=== PATIENT | male | born 1985 | race Hispanic/Latino ===

== ENCOUNTER 2017-12-16 08:21 | Day surgery (SDC) | payer BC ==
[2017-12-16] MEDS ORDERED: Ringers Lactate 1,000 ML IV ONE (08:25)
[2017-12-16] MEDS ORDERED: PROPOFOL 200 MG/20 ML VIAL IV ONE (09:23)
[2017-12-16] MEDS ORDERED: MIDAZOLAM HCL 2 MG/2 ML INJ ONE ×2 (09:24→11:46)
[2017-12-16] MEDS ORDERED: LIDOCAINE 2% MPF 5 ML VIAL ONE (09:24)
[2017-12-16] MEDS ORDERED: FENTANYL CITR 100 MCG/2 ML ONE ×2 (09:25→10:37)
[2017-12-16] MEDS ORDERED: ONDANSETRON 4 MG/2 ML VIAL ONE (09:25)
[2017-12-16] MEDS ORDERED: ROCURONIUM 50 MG/5 ML VIAL IV ONE (09:25)
[2017-12-16] MEDS ORDERED: BUPIVACA 0.25%/EPI 0.0005% MDV 50 ML VIAL ONE (09:31)
[2017-12-16] MEDS ORDERED: DEXAMETHASONE 10 MG/ML VIAL ONE (10:14)
[2017-12-16] MEDS ORDERED: GLYCOPYRROLATE 0.2 MG/ML SYR ONE ×2 (10:15→10:16)
[2017-12-16] MEDS ORDERED: NEOSTIGMINE 1 MG/ML -5 ML SYRINGE ONE (10:16)
--- NOTE | 2017-12-16 11:27 | P.OP ---
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 Details of Operation: The patient was brought to the operating room and placed under general anesthesia via endotracheal tube. The head of bed was turned 90 degrees. A Shoulder roll was placed and the neck extended. A head drape was applied. The McIvor mouth gag was placed and suspended from the Iglesias stand. The oxygen concentrate was confirmed with the sock lining examiner and was less than forty percent. Weight-based dexamethasone was administered by the sock lining examiner. The soft palate was palpated and there was no submucous cleft. A red rubber catheter was placed in the nose and secured to retract the soft palate. The tonsils were noted to be very large and cryptic and chonically inflammed. The left tonsil was grasped with a straight Allis clamp. The bovie electocautery was used to incision the mucosa over the anterior pillar and identify the tonsillar capsule. The tonsil was dissected using cautery and blunt dissection until free from soft tissue attachments. A tonsil ball was placed to aid hemostasis. The right tonsil was removed in a similar manner. Bleeding in the inferior fossa bilaterally required ligation with 0 Vicryl endoloop. The laryngeal mirror was used to visualize the nasopharynx. The adenoid size was small. The adenoids were removed using suction cautery. Hemostasis was achieved using packing and cautery as needed. Blood loss was minimal. All packing was removed. The tonsillar fossae were injected with 0.25% Marcaine with epinephrine. A total of 1.5 mL was used. A Salum sump orogastric tube was used to decompress the stomach. The red rubber catheter was removed and used to suction the nasopharynx and nasal cavity. The mouth gag was removed; there was no evidence of injury to the lips, teeth or tongue. The mandible was mobile. The patient's large tongue, excess weight and redundant soft palate indicate his should continue to use his CPAP machine with humidification daily. Disposition: The patient was then awakened from anesthesia and taken to the recovery room in stable condition.
[2017-12-16] MEDS: MEPERIDINE HCL 50 MG/ML AMP ONE ×2 (11:48→11:57)
[2017-12-16] MEDS ORDERED: HYDROCOD 2.5mg-ACETAMIN 108mg/5mL Soln ONE (12:49)
== END 2017-12-16 13:50 | disposition home or self-care (01) ==
LOC: OR 08:21
PROVIDERS: ATTEND Otolaryngology
PROC: 0CTPXZZ Resection of Tonsils, External Approach (ICD-10-PCS; principal; 2017-12-16 10:15)
DX: J03.91 Acute recurrent tonsillitis, unspecified (principal); J35.01 Chronic tonsillitis; D10.39 Benign neoplasm of other parts of mouth; G47.33 Obstructive sleep apnea (adult) (pediatric); Z83.3 Family history of diabetes mellitus; Z82.49 Family history of ischemic heart disease and other diseases of the circulatory system; Z82.3 Family history of stroke
CPT/HCPCS: 88305; J1100; J2175; J2250; J2405; J2710; J3010

== ENCOUNTER 2021-01-17 19:15 | Emergency (ER) | payer BC ==
--- OUTSIDE RECORDS SUMMARY | 2021-01-17 19:18 | XMS REPORT | Continuity of Care Document ---
:1985 Author Organization [facility] t Address [address] [place] [address] Care Team Providers Name Role Phone Camden Fox MD Attending Clinician Problems This patient has no known problems. Allergies, Adverse Reactions, Alerts This patient has no known allergies or adverse reactions. Medications This patient has no known medications. Procedures This patient has no known procedures. Encounters Start End Encounter Admission Attending Care Care Encounter Source Date/Time Date/Time Type Type Clinicians Facility Department ID 2020-04-28 2020-04-28 Emergency Ruddy [facility] [id number] 15:26:00 19:18:00 Camden Cunha [id number] [place] [id number] [place] [id number] Results This patient has no known results.
[2021-01-17 20:48] LABS: Absolute Lymphocytes (CBC) 2.8 K/uL (0.7-4.9); Basophils % 1.1 % (0-1.3); Lymphocytes % 30.7 % (15.3-44.8); MPV 9.8 fL (7.6-11.3); RBC Red Blood Cell Count 5.05 M/uL (4.33-5.43)
[2021-01-17 21:02] LABS: ALT/SGPT 94 U/L (12-78); Albumin 3.8 g/dL (3.4-5.0); Alkaline Phosphatase 204 U/L (45-117); BUN Blood Urea Nitrogen 20 mg/dL (7-18); Bicarbonate 25 mmol/L (21-32); Bilirubin Direct < 0.1 mg/dL (0-0.2); Bilirubin Total 0.5 mg/dL (0.2-1.0); Glucose Level 382 mg/dL (74-106); Lipase 198 U/L (73-393); Protein, Total 7.6 g/dL (6.4-8.2); Sodium Level 134 mmol/L (136-145)
[2021-01-17 21:05] LABS: Potassium 3.5 mmol/L (3.5-5.1)
[2021-01-17 21:06] LABS: AST/SGOT 33 U/L (15-37)
[2021-01-17] MEDS ORDERED: INSULIN -REGULAR HUMAN 50 UNIT/0.5 ML ML ONE (21:46)
[2021-01-17] MEDS ORDERED: NA CHLORIDE 0.9% 2,000 ML ONE (21:46)
[2021-01-17 22:46] LABS: Urine Blood Negative (Negative); Urine Glucose 2+ (Negative); Urine Protein Trace (Negative); Urine pH 5.5 (5.0-7.0)
[2021-01-17 23:15] LABS: Urine Bacteria <20 /HPF (NONE SEEN); Urine RBC <5 /HPF (NONE SEEN)
--- NOTE | 2021-01-17 23:48 | ER ---
Nurse's Notes [facility] Name: Wade Hutchinson Age: 35 yrs Sex: Male : 1985 Arrival Date: 01/17/2021 Time: 19:21 Bed 5 Private MD: Diagnosis: Diabetes mellitus due to underlying condition with hyperglycemia Presentation: 01/17 20:12 Chief complaint: Patient states: has had increased thirst and increased urination X 8 iw days, checked his BS and it was 586, no hx of diabetes. Coronavirus screen: At this time, the client does not indicate any symptoms associated with coronavirus-19. Ebola Screen: Patient negative for fever greater than or equal to 101.5 degrees Fahrenheit, and additional compatible Ebola Virus Disease symptoms Patient denies exposure to infectious person. Patient denies travel to an Ebola-affected area in the 21 days before illness onset. No symptoms or risks identified at this time. Initial Sepsis Screen: Does the patient meet any 2 criteria? No. Patient's initial sepsis screen is negative. Does the patient have a suspected source of infection? No. Patient's initial sepsis screen is negative. Risk Assessment: Do you want to hurt yourself or someone else? Patient reports no desire to harm self or others. Onset of symptoms was January 09, 2021. 20:12 Method Of Arrival: Ambulatory iw 20:12 Acuity: PORTIA 3 iw Historical: - Allergies: 20:14 No Known Allergies; iw - Home Meds: 20:14 None [Active]; iw - PMHx: 20:14 Sleep Apnea; iw - PSHx: 20:14 Tonsillectomy; iw - Immunization history:: Adult Immunizations not up to date. - Social history:: Smoking status: Patient denies any tobacco usage or history of. Screenin:29 Abuse screen: Denies threats or abuse. Nutritional screening: No deficits noted. ea Tuberculosis screening: No symptoms or risk factors identified. Fall Risk None identified. Assessment: 20:28 General: Appears in no apparent distress. Behavior is calm, cooperative, appropriate ea for age. Pain: Denies pain. Neuro: Level of Consciousness is awake, alert, obeys commands, Oriented to person, place, time. Respiratory: Airway is patent Respiratory effort is even, unlabored, Respiratory pattern is regular, symmetrical. Derm: Skin is pink, warm \T\ dry. Vital Signs: 20:12 Pulse 92; Resp 18 S; Temp 97.8; Pulse Ox 98% on R/A; Weight 106.14 kg; Height 5 ft. 4 iw in. (162.56 cm); Pain 0/10; 21:41 BP 134 / 78; Pulse 95; Resp 18; Pulse Ox 95% ; ea 22:19 BP 148 / 93; Pulse 96; Resp 18; Pulse Ox 96% ; ea 23:50 BP 130 / 85; Pulse 90; Resp 18; Temp 98; Pulse Ox 98% ; ea 20:12 Body Mass Index 40.17 (106.14 kg, 162.56 cm) iw ED Course: 19:21 Patient arrived in ED. am4 20:03 Vineet Choudhary PA is PHCP. cp 20:03 Yuan Rasheed MD is Attending Physician. cp 20:13 Triage completed. iw 20:14 Arm band placed on. iw 20:28 Giovana Thompson RN is Primary Nurse. ea 20:29 Patient has correct armband on for positive identification. Bed in low position. Call ea light in reach. Side rails up X 1. 20:35 Inserted saline lock: 20 gauge in right antecubital area, using aseptic technique. oe Blood collected. 22:09 US Abdomen Limited: liver/galbladder In Process Unspecified. EDMS 23:58 No provider procedures requiring assistance completed. IV discontinued, intact, ea bleeding controlled, No redness/swelling at site. Pressure dressing applied. Administered Medications: 21:21 CANCELLED (Inappropriate at this time): morphine 2 mg IVP once; (PAIN>8) RASS on ADMN: ea Combtv4, Very Agttd3, Agttd2, Rstlss1, AlertClm0, Drwsy-1, LtSdtn-2, ModSdtn-3, DpSdtn-4, UnArsble-5 x2 21:21 CANCELLED (Inappropriate at this time): Zofran (Ondansetron) 4 mg IVP once; over 2 ea minutes 21:32 Drug: NovoLIN R (insulin regular human) 7 units {Co-Signature: lp1 (Elvia Nazario RN).} ea Route: Sub-Q; Site: abdomen; 23:57 Follow up: Response: No adverse reaction ea 21:32 Drug: NS 0.9% 1000 ml Route: IV; Rate: 1 bolus; Site: right antecubital; ea 23:57 Follow up: Response: No adverse reaction; IV Status: Completed infusion; IV Intake: ea 1000ml 21:33 Drug: NS 0.9% 1000 ml Route: IV; Rate: 1 bolus; Site: right antecubital; ea Point of Care Testing: Blood Glucose: 20:14 Blood Glucose: 392 mg/dL; iw Ranges: Intake: 23:57 IV: 1000ml; Total: 1000ml. ea Outcome: 23:48 Discharge ordered by MD. cp 23:59 Discharged to home ambulatory, with family. ea 23:59 Condition: stable 23:59 Discharge instructions given to patient, Instructed on discharge instructions, follow up and referral plans. medication usage. 01/18 00:00 Patient left the ED. ea Signatures: Dispatcher [employer] EDMS Kym Ayala, RN RN Vineet Morse PA PA cp Espinosa, [place] oe Antunez, Elena RN RN Santa Weiss am Elvia Nazario RN lp1
--- NOTE | 2021-01-17 23:48 | EDPHYS ---
Physician Documentation [facility] Name: Wade Hutchinson Age: 35 yrs Sex: Male : 1985 Arrival Date: 01/17/2021 Time: 19:21 Bed 5 Private MD: ED Physician Yuan Rasheed HPI: 01/17 20:20 This 35 yrs old Male presents to ER via Ambulatory with complaints of High cp Blood Sugar. 20:20 The patient or guardian reports hyperglycemia, polydipsia, polyuria, weight loss, that cp was potentially precipitated by no particular event. Onset: The symptoms/episode began/occurred 8 day(s) ago. Associated signs and symptoms: Pertinent negatives: None. Current symptoms: In the emergency department the patient's symptoms are unchanged from the initial presentation, despite home interventions. Patient reports checking blood glucose level today and measuring 586. Patient denies being diagnosed with diabetes in the past. Historical: - Allergies: 20:14 No Known Allergies; iw - Home Meds: 20:14 None [Active]; iw - PMHx: 20:14 Sleep Apnea; iw - PSHx: 20:14 Tonsillectomy; iw - Immunization history:: Adult Immunizations not up to date. - Social history:: Smoking status: Patient denies any tobacco usage or history of. ROS: 20:25 Constitutional: Negative for body aches, chills, fever, poor PO intake. cp 20:25 Eyes: Negative for injury, pain, redness, and discharge. cp 20:25 ENT: Negative for ear pain, sore throat, difficulty swallowing, difficulty handling secretions. 20:25 Cardiovascular: Negative for chest pain, edema, palpitations. 20:25 Respiratory: Negative for cough, shortness of breath, wheezing. 20:25 Abdomen/GI: Negative for abdominal pain, nausea, vomiting, and diarrhea. 20:25 : Negative for burning with urination. 20:25 Neuro: Negative for altered mental status, headache, weakness. 20:25 Endocrine: Positive for polydipsia, polyuria, weight loss. 20:25 All other systems are negative. Exam: 20:30 Constitutional: The patient appears in no acute distress, alert, awake, cp non-diaphoretic, non-toxic, well developed, well nourished, overweight 20:30 Head/Face: Normocephalic, atraumatic. cp 20:30 Eyes: Periorbital structures: appear normal, Conjunctiva: normal, no exudate, no injection, Sclera: no appreciated abnormality, Lids and lashes: appear normal, bilaterally. 20:30 ENT: External ear(s): are unremarkable, Nose: is normal, Mouth: Lips: moist, Oral mucosa: moist, Posterior pharynx: Airway: no evidence of obstruction, patent. 20:30 Chest/axilla: Inspection: normal, Palpation: is normal, no crepitus, no tenderness. 20:30 Cardiovascular: Rate: normal, Rhythm: regular. 20:30 Respiratory: the patient does not display signs of respiratory distress, Respirations: normal, no use of accessory muscles, no retractions, labored breathing, is not present, Breath sounds: are clear throughout, no decreased breath sounds. 20:30 Abdomen/GI: Inspection: abdomen appears normal, Palpation: abdomen is soft and non-tender, in all quadrants. 20:30 Neuro: Orientation: to person, place \T\ time. Mentation: is normal, Cerebellar function: is grossly normal, Motor: moves all fours, strength is normal, Sensation: is normal. Vital Signs: 20:12 Pulse 92; Resp 18 S; Temp 97.8; Pulse Ox 98% on R/A; Weight 106.14 kg; Height 5 ft. 4 iw in. (162.56 cm); Pain 0/10; 21:41 BP 134 / 78; Pulse 95; Resp 18; Pulse Ox 95% ; ea 22:19 BP 148 / 93; Pulse 96; Resp 18; Pulse Ox 96% ; ea 23:50 BP 130 / 85; Pulse 90; Resp 18; Temp 98; Pulse Ox 98% ; ea 20:12 Body Mass Index 40.17 (106.14 kg, 162.56 cm) iw MDM: 20:14 Patient medically screened. cp 21:00 Differential diagnosis: diabetes insipidus, DKA, hyperglycemia, hyperthyroidism, new cp onset diabetes. 23:45 Data reviewed: vital signs, nurses notes, lab test result(s), radiologic studies, cp ultrasound, and as a result, I will discharge patient. 23:45 Counseling: I had a detailed discussion with the patient and/or guardian regarding: the cp historical points, exam findings, and any diagnostic results supporting the discharge/admit diagnosis, lab results, radiology results, the need for outpatient follow up, for definitive care, a family practitioner, to return to the emergency department if symptoms worsen or persist or if there are any questions or concerns that arise at home. Response to treatment: the patient's symptoms have markedly improved after treatment, and as a result, I will discharge patient. 01/17 20:12 Order name: Basic Metabolic Panel 01/17 20:12 Order name: CBC with Diff 01/17 20:12 Order name: Hepatic Function; Complete Time: 21:07 01/17 22:31 Interpretation: Normal except: ALT 94; ALK 204; GLOB 3.8; A/G 1.0. cp 01/17 20:12 Order name: Lipase; Complete Time: 21:07 01/17 20:12 Order name: Ketone, Serum; Complete Time: 21:07 01/17 20:12 Order name: Urine Microscopic Only; Complete Time: 23:30 01/17 20:13 Order name: Basic Metabolic Panel; Complete Time: 21:07 EDKS 01/17 22:31 Interpretation: Normal except: NA 134; GLUC 382; BUN 20; GFR 81; CA 8.3. cp 01/17 20:13 Order name: CBC with Automated Diff; Complete Time: 21:07 EDMS 01/17 20:24 Order name: Glucose, Ancillary Testing EDKS 01/17 21:11 Order name: US Abdomen Limited: liver/galbladder 01/17 22:45 Order name: Urine Dipstick-Ancillary; Complete Time: 23:30 EDMS 01/17 23:01 Order name: Glucose, Ancillary Testing; Complete Time: 23:30 EDKS 01/17 20:12 Order name: IV Saline Lock; Complete Time: 20:45 01/17 20:12 Order name: Labs collected and sent; Complete Time: 20:45 cp 01/17 21:11 Order name: NPO; Complete Time: 21:37 01/17 22:32 Order name: Accucheck Blood Glucose; Complete Time: 23:08 cp Administered Medications: 21:21 CANCELLED (Inappropriate at this time): morphine 2 mg IVP once; (PAIN>8) RASS on ADMN: ea Combtv4, Very Agttd3, Agttd2, Rstlss1, AlertClm0, Drwsy-1, LtSdtn-2, ModSdtn-3, DpSdtn-4, UnArsble-5 x2 21:21 CANCELLED (Inappropriate at this time): Zofran (Ondansetron) 4 mg IVP once; over 2 ea minutes 21:32 Drug: NovoLIN R (insulin regular human) 7 units {Co-Signature: lp1 (Elvia Nazario RN).} ea Route: Sub-Q; Site: abdomen; 23:57 Follow up: Response: No adverse reaction ea 21:32 Drug: NS 0.9% 1000 ml Route: IV; Rate: 1 bolus; Site: right antecubital; ea 23:57 Follow up: Response: No adverse reaction; IV Status: Completed infusion; IV Intake: ea 1000ml 21:33 Drug: NS 0.9% 1000 ml Route: IV; Rate: 1 bolus; Site: right antecubital; ea Point of Care Testing: Blood Glucose: 20:14 Blood Glucose: 392 mg/dL; iw Ranges: Critical Glucose Levels:Adult <50 mg/dl or >400 mg/dl <40 mg/dl or >180 mg/dl Disposition: 01/18 05:06 Co-signature as Attending Physician, Yuan Rasheed MD. [facility] Disposition: 01/17/21 23:48 Discharged to Home. Impression: Diabetes mellitus due to underlying condition with hyperglycemia. - Condition is Stable. - Discharge Instructions: Blood Glucose Monitoring, Adult, Diabetes Mellitus and Food. - Prescriptions for Metformin 500 mg Oral Tablet - take 1 tablet by ORAL route once daily for 7 days Then take 1 tablet with morning meals AND evening meals; 21 tablet. - Medication Reconciliation Form, Thank You Letter, Antibiotic Education, Prescription Opioid Use form. - Follow up: Private Physician; When: 1 - 2 days; Reason: Recheck today's complaints. - Problem is new. - Symptoms have improved. Signatures: Dispatcher [employer] Kym Alonzo RN RN iw Attema, Lee, FNP-C FNP-Cla1 Vineet Choudhary PA PA cp Antunez, Elena, RN RN ea Holmes, Maurice, MD MD [facility] Elvia Nazario RN lp1 Corrections: (The following items were deleted from the chart) 01/17 21:21 21:21 morphine 2 mg IVP once; (PAIN>8) RASS on ADMN: Combtv4, Very Agttd3, Agttd2, ea Rstlss1, AlertClm0, Drwsy-1, LtSdtn-2, ModSdtn-3, DpSdtn-4, UnArsble-5 x2 ordered. ea : 21:21 Zofran (Ondansetron) 4 mg IVP once; over 2 minutes ordered. ea ea 22:31 21:07 Normal except: ALT 94; ALK 204; GLOB 3.8. cp cp 22:31 21:08 Normal except: NA 134; GLUC 382; BUN 20; GFR 81. cp cp 01/18 00:00 01/17 23:48 01/17/2021 23:48 Discharged to Home. Impression: Diabetes mellitus due to ea underlying condition with hyperglycemia. Condition is Stable. Forms are Medication Reconciliation Form, Thank You Letter, Antibiotic Education, Prescription Opioid Use. Follow up: Private Physician; When: 1 - 2 days; Reason: Recheck today's complaints. Problem is new. Symptoms have improved. cp
[2021-01-18 00:36] VITALS: BP 130/85; TEMP 98; O2SAT 98
--- NOTE | 2021-01-18 08:08 | RAD REPORT ---
EXAM DESCRIPTION: US - Abdomen Exam Limited - 01/17/2021 10:09 pm CLINICAL HISTORY: elevated liver enzymes COMPARISON: No comparisons FINDINGS: No gallstones, sludge or other abnormalities within the gallbladder lumen. There is no wal l thickening or pericholecystic fluid. No common duct stone or biliary tree dilatation identified. Partially imaged liver shows fatty infiltration. IMPRESSION: Normal gallbladder and biliary tree ultrasound. Fatty infiltration of a partially visualized liver.
== END 2021-01-18 | disposition home or self-care (01) ==
LOC: ER 19:15
DX: E11.65 Type 2 diabetes mellitus with hyperglycemia (principal)
CPT/HCPCS: 96361; 85025; 80048; 36415; 82010; 82947 ×2; 80076; 83690; 76705; 96360; 96372; 99284; J7030; 81003; 81015

== ENCOUNTER 2021-04-23 22:08 | Inpatient (IN) | payer BC ==
--- OUTSIDE RECORDS SUMMARY | 2021-04-23 22:11 | XMS REPORT | Continuity of Care Document ---
:1985 Author Organization [facility] t Address [address] [place] [address] Care Team Providers Name Role Phone Camden [...] Facility Department ID 2020-04-28 2020-04-28 Emergency Ruddy [facility] [id number] 15:26:00 19:18:00 Camden Cunha [id number] [place] [id number] [place] [id number] Results This patient has no known results.
[2021-04-23 23:21] LABS: Absolute Lymphocytes (CBC) 0.7 K/uL (0.7-4.9); Basophils % 0.2 % (0-1.3); Hematocrit 44.6 % (39.6-49.0); Lymphocytes % 8.6 % (15.3-44.8); MPV 7.8 fL (7.6-11.3); Protime INR 1.03; RBC Red Blood Cell Count 5.15 M/uL (4.33-5.43)
[2021-04-23 23:37] LABS: ALT/SGPT 187 U/L (12-78); AST/SGOT 68 U/L (15-37); Albumin 3.5 g/dL (3.4-5.0); Alkaline Phosphatase 122 U/L (45-117); BUN Blood Urea Nitrogen 12 mg/dL (7-18); Bicarbonate 26 mmol/L (21-32); Bilirubin Direct < 0.1 mg/dL (0-0.2); Bilirubin Total 0.3 mg/dL (0.2-1.0); Ferritin 1489.6 ng/mL (26-388); Glucose Level 222 mg/dL (74-106); NT PRO-BNP 10 pg/mL (<125); Protein, Total 8.3 g/dL (6.4-8.2); Sodium Level 141 mmol/L (136-145); Troponin (Emerg Dept Use Only) < 0.02 ng/mL (0.0-0.045)
--- NOTE | 2021-04-24 00:05 | EDPHYS ---
Physician Documentation [facility] Name: Wade Hutchinson Age: 36 yrs Sex: Male : 1985 Arrival Date: 04/23/2021 Time: 22:12 Bed 7 Private MD: ED Physician Joni Whitehead HPI: 04/23 23:46 This 36 yrs old Male presents to ER via Wheelchair with complaints of +COVID, sp3 O2-88%. 23:46 36-year-old male with a history of diabetes and sleep apnea presents with difficulty sp3 breathing positive COVID-19 diagnosis. Patient symptoms for started 5 days ago and he had a positive test 3 days ago. Symptoms include shortness of breath, cough, sore throat, subjective fever. Patient denies nausea, vomiting, headache, abdominal pain, loss of taste or smell, syncope, neuro symptoms, bleeding, any other ROS at this time. Remainder of ROS negative.. Historical: - Allergies: 22:39 No Known Allergies; kg - Home Meds: 22:39 benzonatate 100 mg oral cap 1 cap [Active]; prednisone 20 mg Oral tab 2 tabs once daily kg [Active]; azithromycin 250 mg Oral tab 1 tab once daily [Active]; metformin 1,000 mg Oral tab 1 tab [Active]; - PMHx: 22:39 Sleep Apnea; NIDDM; kg - PSHx: 22:39 Tonsillectomy; kg - Immunization history:: Adult Immunizations not up to date, Client reports having NOT received the Covid vaccine. - Social history:: Smoking status: Patient denies any tobacco usage or history of. Patient uses alcohol, occasionally. ROS: 23:47 Eyes: Negative for injury, pain, redness, and discharge, ENT: Negative for injury, sp3 pain, and discharge, Neck: Negative for injury, pain, and swelling, Abdomen/GI: Negative for abdominal pain, nausea, vomiting, diarrhea, and constipation, Back: Negative for injury and pain, Skin: Negative for injury, rash, and discoloration, Neuro: Negative for headache, weakness, numbness, tingling, and seizure, Psych: Negative for depression, anxiety, suicide ideation, homicidal ideation, and hallucinations, Hematologic/Lymphatic: Negative for swollen nodes, abnormal bleeding, and unusual bruising. 23:47 Constitutional: Positive for fatigue, fever, malaise. 23:47 Cardiovascular: Positive for palpitations. 23:47 Respiratory: Positive for cough, shortness of breath. 23:47 All other systems are negative. Exam: 23:48 Head/Face: Normocephalic, atraumatic. Eyes: Pupils equal round and reactive to light, sp3 extra-ocular motions intact. Lids and lashes normal. Conjunctiva and sclera are non-icteric and not injected. Cornea within normal limits. Periorbital areas with no swelling, redness, or edema. ENT: Nares patent. No nasal discharge, no septal abnormalities noted. External auditory canals are clear. Oropharynx with no redness, swelling, or masses, exudates, or evidence of obstruction, uvula midline. Mucous membranes moist. Neck: Trachea midline, no thyromegaly or masses palpated, and no cervical lymphadenopathy. Supple, full range of motion without nuchal rigidity, or vertebral point tenderness. No Meningismus. Chest/axilla: Normal chest wall appearance and motion. Nontender with no deformity. No lesions are appreciated. Abdomen/GI: Soft, non-tender, with normal bowel sounds. No distension or tympany. No guarding or rebound. No evidence of tenderness throughout. Back: No spinal tenderness. No costovertebral tenderness. Full range of motion. Skin: Warm, dry with normal turgor. Normal color with no rashes, no lesions, and no evidence of cellulitis. Neuro: Awake and alert, GCS 15, oriented to person, place, time, and situation. Cranial nerves II-XII grossly intact. Motor strength 5/5 in all extremities. Sensory grossly intact. Cerebellar exam normal. Normal gait. 23:48 Constitutional: The patient appears well developed, anxious, diaphoretic, in obvious distress, moderately distressed. 23:48 Cardiovascular: Exam negative for edema, gallop, murmur, pulse deficit, Rate: tachycardic. 23:48 Respiratory: moderate respiratory distress is noted, Respirations: labored breathing, intercostal retractions, shallow respirations, Breath sounds: rales, bronchial sounds, rhonchi, Respiratory rate: 40 23:49 ECG was reviewed by the Attending Physician. EKG demonstrates sinus tachycardia at 132 sp3 bpm with normal QRS, normal intervals, rightward axis, nonspecific ST/T changes diffuse. Vital Signs: 22:36 BP 136 / 84; Pulse 131; Resp 28; Temp 103.2; Pulse Ox 86% on R/A; Weight 106.14 kg; kg Height 5 ft. 4 in. (162.56 cm) (R); Pain 10; 04/24 01:12 BP 125 / 82; Pulse 125; Resp 46; Temp 101.5(TE); Pulse Ox 97% on BiPAP; jb4 02:16 BP 91 / 75; Pulse 111; Resp 42; Temp 98.6(TE); Pulse Ox 96% on 40% BiPAP; jb4 04/23 22:36 Body Mass Index 40.17 (106.14 kg, 162.56 cm) kg MDM: 04/23 22:53 Patient medically screened. sp3 23:49 Data reviewed: vital signs, nurses notes, lab test result(s), EKG, radiologic studies. sp3 23:50 ED course: Patient started on BiPAP immediately upon arrival which is helped his sp3 respiratory state. Pulse oxygenation is now in the mid 90s from 86% on room air. Heart rate is slowly coming down. Chest x-ray demonstrates bilateral opacities consistent with COVID-19 pneumonia. We will also administer Decadron and Lovenox and get patient admitted to the hospitalist service. Multiple visits into the room were performed including adjusting BiPAP recommendations. Total critical care time 30 minutes.. 04/23 22:53 Order name: Basic Metabolic Panel 3 04/23 22:53 Order name: CBC with Diff 3 04/23 22:53 Order name: LFT's 3 04/23 22:53 Order name: Magnesium 3 04/23 22:53 Order name: NT PRO-BNP 3 04/23 22:53 Order name: PT-INR; Complete Time: 23:44 3 04/23 22:53 Order name: Troponin (emerg Dept Use Only); Complete Time: 23:44 3 04/23 22:53 Order name: Ferritin; Complete Time: 23:44 sp3 04/23 22:53 Order name: CRP; Complete Time: 23:39 sp3 04/23 22:53 Order name: Lactate 3 04/23 22:55 Order name: Basic Metabolic Panel; Complete Time: 23:44 EDMS 04/23 22:55 Order name: CBC with Automated Diff; Complete Time: 23:44 EDMS 04/23 22:55 Order name: Liver (Hepatic) Function; Complete Time: 23:44 EDMS 04/23 22:55 Order name: Magnesium; Complete Time: 23:44 EDMS 04/23 22:55 Order name: NT PRO-BNP; Complete Time: 23:44 EDMS 04/23 23:56 Order name: ABG sp3 04/23 23:56 Order name: ABG Arterial Blood Gas EDMS 04/24 02:00 Order name: Procalcitonin jb4 04/24 02:55 Order name: Procalcitonin EDMS 04/24 05:47 Order name: CBC with Automated Diff EDMS 04/24 05:52 Order name: Urinalysis EDMS 04/24 06:03 Order name: Comprehensive Metabolic Panel EDMS 04/24 06:03 Order name: C-Reactive Protein EDMS 04/24 06:03 Order name: Ferritin EDMS 04/24 06:12 Order name: Urine Microscopic Only EDMS 04/24 06:15 Order name: D-Dimer EDMS 04/24 07:35 Order name: Hemoglobin A1c EDMS 04/24 08:39 Order name: Glucose, Ancillary Testing EDMS 04/24 11:48 Order name: Glucose, Ancillary Testing EDMS 04/24 13:12 Order name: CBC Smear Scan EDMS 04/23 22:53 Order name: EKG; Complete Time: 22:55 sp3 04/23 22:53 Order name: Cardiac monitoring; Complete Time: 00:09 sp3 04/23 22:53 Order name: EKG - Nurse/Tech; Complete Time: 00:09 sp3 04/23 22:53 Order name: IV Saline Lock; Complete Time: 00:09 sp3 04/23 22:53 Order name: Labs collected and sent; Complete Time: 00:09 sp3 04/23 22:53 Order name: O2 Per Protocol; Complete Time: 00:09 sp3 04/23 22:53 Order name: O2 Sat Monitoring; Complete Time: 00:09 sp3 04/23 23:00 Order name: Chest Single View EDMS 04/23 23:06 Order name: BIPAP sp3 04/23 23:52 Order name: CT Chest For PE Angio sp3 04/24 09:02 Order name: US EDMS 04/24 17:35 Order name: Glucose, Ancillary Testing EDMS 04/24 20:43 Order name: Glucose, Ancillary Testing EDMS Administered Medications: 22:55 Drug: Tylenol 1000 mg Route: PO; bs2 04/24 00:20 Drug: Decadron - Dexamethasone 10 mg Route: IVP; Site: right antecubital; jb4 00:51 Follow up: Response: No adverse reaction jb4 00:22 Drug: Lovenox (enoxaparin) 1 mg/kg Route: Sub-Q; Site: right upper arm; jb4 00:51 Follow up: Response: No adverse reaction jb4 00:50 Drug: Ativan (LORazepam) 1 mg Route: IVP; Site: right antecubital; jb4 01:27 Follow up: Response: No adverse reaction; Anxiety decreased jb4 00:51 Drug: NS 0.9% 1000 ml Route: IV; Rate: 1 bolus; Site: right antecubital; jb4 02:00 Follow up: Response: No adverse reaction; IV Status: Completed infusion; IV Intake: jb4 1000ml 01:27 Drug: Motrin (ibuprofen) 800 mg Route: PO; jb4 02:40 Follow up: Response: No adverse reaction; Marked relief of symptoms; Temperature is jb4 decreased Disposition Summary: 04/24/21 00:04 Hospitalization Ordered Hospitalization Status: Inpatient Admission sp3 Provider: Paul Hernandez sp3 Condition: Fair sp3 Problem: new sp3 Symptoms: have worsened sp3 Bed/Room Type: Standard sp3 Location: Telemetry/MedSurg (Inpatient)(04/24/21 20:43) Room Assignment: [facility](04/24/21 20:43) Diagnosis - Pneumonia due to SARS-associated coronavirus sp3 Forms: - Medication Reconciliation Form sp3 - SBAR form sp3 Signatures: Dispatcher [employer] EDMS Rodriguez Troy, LINDA SAP PORTAL CONSULTANT-Cla1 Perri Calderon RN RN cg Jonathon San RN RN jb4 Jany Lopez RN RN kg Patel, Setul sp3 Julienne Ashley RN RN bs2 Corrections: (The following items were deleted from the chart) 04/23 22:59 22:55 Chest Single View+RAD.RAD.BRZ ordered. EDMS EDMS 23:00 22:46 Chest Pa And Lat (2 Views)+RAD.RAD.BRZ ordered. EDMS EDMS 04/24 02:45 00:04 Intensive Care Unit sp3 cg 02:45 00:04 sp3 cg 20:43 02:45 [facility] ER HOLD cg cg 20:43 02:45 ERHOLD- cg cg
--- NOTE | 2021-04-24 00:05 | ER ---
Nurse's Notes [facility] Name: Wade Hutchinson Age: 36 yrs Sex: Male : 1985 Arrival Date: 04/23/2021 Time: 22:12 Bed 7 Private MD: Diagnosis: Pneumonia due to SARS-associated coronavirus Presentation: 04/23 22:36 Chief complaint: Patient states: SOB, Sore throat x 2 days. COVID + 04/20. Coronavirus kg screen: Client denies travel out of the [place] in the last 14 days. At this time, unable to obtain information related to travel outside the [place] Client presents with at least one sign or symptom that may indicate coronavirus-19. Standard/surgical mask placed on the client. Provider contacted for isolation considerations. Client reports previous positive COVID test result. Date of collection: April 20, 2021. Ebola Screen: Patient negative for fever greater than or equal to 101.5 degrees Fahrenheit, and additional compatible Ebola Virus Disease symptoms Patient denies exposure to infectious person. Patient denies travel to an Ebola-affected area in the 21 days before illness onset. 22:36 Method Of Arrival: Wheelchair kg 22:36 Initial Sepsis Screen: Does the patient meet any 2 criteria? RR > 20 per min. Temp kg <36.0*C (96.8*F)) or > 38.3*C (100.9*F). HR > 90 bpm. Does the patient have a suspected source of infection? Yes: Productive cough/pneumonia. Risk Assessment: Do you want to hurt yourself or someone else? Patient reports no desire to harm self or others. Onset of symptoms was April 21, 2021. 22:36 Acuity: PORTIA 3 kg Triage Assessment: 22:39 General: Appears in no apparent distress. Behavior is calm, cooperative, appropriate kg for age, quiet. Pain: Complains of pain in face Pain radiates to Generalized. Historical: - Allergies: 22:39 No Known Allergies; kg - Home Meds: 22:39 benzonatate 100 mg oral cap 1 cap [Active]; prednisone 20 mg Oral tab 2 tabs once daily kg [Active]; azithromycin 250 mg Oral tab 1 tab once daily [Active]; metformin 1,000 mg Oral tab 1 tab [Active]; - PMHx: 22:39 Sleep Apnea; NIDDM; kg - PSHx: 22:39 Tonsillectomy; kg - Immunization history:: Adult Immunizations not up to date, Client reports having NOT received the Covid vaccine. - Social history:: Smoking status: Patient denies any tobacco usage or history of. Patient uses alcohol, occasionally. Screenin:44 Abuse screen: Denies threats or abuse. Denies injuries from another. Nutritional kg screening: No deficits noted. Tuberculosis screening: No symptoms or risk factors identified. Fall Risk None identified. Assessment: 23:00 General: Appears in no apparent distress. distressed, Behavior is calm, cooperative, jb4 appropriate for age. Pain: Denies pain. Neuro: Level of Consciousness is awake, alert, obeys commands, Oriented to person, place, time, situation. Cardiovascular: Patient's skin is warm and dry. Respiratory: Airway is patent Respiratory effort is even, labored, with nasal flaring, shallow, Respiratory pattern is regular, hyperventilation. GI: No signs and/or symptoms were reported involving the gastrointestinal system. : No signs and/or symptoms were reported regarding the genitourinary system. EENT: No signs and/or symptoms were reported regarding the EENT system. Derm: Skin is intact, Skin is diaphoretic, Skin is pale, Skin temperature is warm. Musculoskeletal: Circulation, motion, and sensation intact. Range of motion: intact in all extremities. 04/24 00:00 Reassessment: Patient appears in no apparent distress at this time. Patient and/or jb4 family updated on plan of care and expected duration. Pain level reassessed. Respiratory: Airway is patent Respiratory effort is even, labored, Respiratory pattern is tachypnea. 01:00 Reassessment: Patient appears in no apparent distress at this time. No changes from jb4 previously documented assessment. Patient and/or family updated on plan of care and expected duration. Pain level reassessed. Vital Signs: 04/23 22:36 BP 136 / 84; Pulse 131; Resp 28; Temp 103.2; Pulse Ox 86% on R/A; Weight 106.14 kg; kg Height 5 ft. 4 in. (162.56 cm) (R); Pain 10/10; 04/24 01:12 BP 125 / 82; Pulse 125; Resp 46; Temp 101.5(TE); Pulse Ox 97% on BiPAP; jb4 02:16 BP 91 / 75; Pulse 111; Resp 42; Temp 98.6(TE); Pulse Ox 96% on 40% BiPAP; jb4 04/23 22:36 Body Mass Index 40.17 (106.14 kg, 162.56 cm) kg ED Course: 04/23 22:12 Patient arrived in ED. wm 22:39 Triage completed. kg 22:39 Arm band placed on left wrist. kg 22:44 Patient has correct armband on for positive identification. kg 22:51 Joni Whitehead is Attending Physician. sp3 22:55 Julienne Ashley, RN is Primary Nurse. bs2 23:00 Chest Single View In Process Unspecified. EDMS 04/24 00:01 Paul Hernandez DO is Hospitalizing Provider. sp3 00:39 CT Chest For PE Angio In Process Unspecified. EDMS Administered Medications: 04/23 22:55 Drug: Tylenol 1000 mg Route: PO; bs2 04/24 00:20 Drug: Decadron - Dexamethasone 10 mg Route: IVP; Site: right antecubital; jb4 00:51 Follow up: Response: No adverse reaction jb4 00:22 Drug: Lovenox (enoxaparin) 1 mg/kg Route: Sub-Q; Site: right upper arm; jb4 00:51 Follow up: Response: No adverse reaction jb4 00:50 Drug: Ativan (LORazepam) 1 mg Route: IVP; Site: right antecubital; jb4 01:27 Follow up: Response: No adverse reaction; Anxiety decreased jb4 00:51 Drug: NS 0.9% 1000 ml Route: IV; Rate: 1 bolus; Site: right antecubital; jb4 02:00 Follow up: Response: No adverse reaction; IV Status: Completed infusion; IV Intake: jb4 1000ml 01:27 Drug: Motrin (ibuprofen) 800 mg Route: PO; jb4 02:40 Follow up: Response: No adverse reaction; Marked relief of symptoms; Temperature is jb4 decreased Intake: 02:00 IV: 1000ml; Total: 1000ml. jb4 Outcome: 00:04 Decision to Hospitalize by Provider. sp3 02:16 Admitted to ER Hold. Please see [facility] for further documentation. jb4 02:16 Condition: improved 02:16 Discharge instructions given to patient, Instructed on the need for admit, Demonstrated understanding of instructions. 22:06 Patient left the ED. sg2 Signatures: Dispatcher [employer] Carlo Sorto, RN RN sg2 Jonathon San RN RN jb4 Jany Lopez, RN RN Sonali Espino Setul sp3 Julienne Ashley, RN RN bs2 Corrections: (The following items were deleted from the chart) 01:24 01:12 Temp 101.5F Temporal; jb4 jb4
[2021-04-24] MEDS ORDERED: dexAMETHasone 10 MG/ML VIAL ONE (00:34)
[2021-04-24] MEDS ORDERED: ENOXAPARIN 100 MG/ML SYR SQ ONE (00:35)
[2021-04-24] MEDS ORDERED: NA CHLORIDE 0.9% 1,000 ML ONE (00:35)
[2021-04-24 00:47] LABS: Blood O2 Saturation 57.1 % (92-98.5)
--- NOTE | 2021-04-24 01:05 | P.HP ---
Certification for Inpatient Patient admitted to: Inpatient With expected LOS: >2 Midnights Patient will require the following post-hospital care: None Practitioner: I am a practitioner with admitting privileges, knowledge of patient current condition, hospital course, and medical plan of care. Services: Services provided to patient in accordance with Admission requirements found in Title 42 Section 412.3 of the Code of Federal Regulations Patient History Date of Service: 04/24/21 Primary Care Provider: Samantha Solorzano Reason for admission: COVID-19 pneumonia History of Present Illness: 36-year-old male with history obstructive sleep apnea, diabetes mellitus type 2, obesity presents emergency department for shortness of breath. Patient reports testing positive for Covid on 04/20/2021 with worsening shortness of breath since then. Patient was saturating in the 80s on room air upon arrival to the emergency department. Patient was evaluated in the ER labs are significant for white blood cell count 8.2 sodium 141 chloride 110 GFR 70 glucose 222 ferritin 1489 AST 68 ALT 187 alk phos 122 C-reactive protein 44.2. Chest x-ray with bilateral Covid pneumonia ED provider wishes to admit for further evaluation and management. Allergies No Known Allergies Allergy (Uncoded 12/14/17 09:58) Unknown Home Medications: NK [No Home Meds] 12/14/17 - Past Medical/Surgical History -: Diabetes mellitus type 2 -: Obstructive sleep -: Obesity -: None Psychosocial/ Personal History: Works in heavy equipment transport lives at home with family - Family History Mother -: Stroke - Social History Smoking Status: Never smoker Alcohol use: No CD- Drugs: No Caffeine use: Yes Place of Residence: Home Review of Systems 10-point ROS is otherwise unremarkable General: Fever, Chills, Weakness, Malaise Respiratory: Cough, Dry, Shortness of Breath, SOB with Excertion Physical Examination - Physical Exam General: Alert, In no apparent distress, Oriented x3 HEENT: Atraumatic, PERRLA, Mucous membr. moist/pink, EOMI, Sclerae nonicteric Neck: Supple, 2+ carotid pulse no bruit, No LAD, Without JVD or thyroid abnormality Respiratory: Diminished, Other (Tachypnea, dyspnea) Cardiovascular: Regular rate/rhythm, Normal S1 S2 Capillary refill: <2 Seconds Gastrointestinal: Normal bowel sounds, No tenderness Musculoskeletal: No tenderness Integumentary: No rashes Neurological: Normal gait, Normal speech, Normal strength at 5/5 x4 extr, Normal tone, Normal affect Lymphatics: No axilla or inguinal lymphadenopathy - Studies Laboratory Data (last 24 hrs) 04/23/21 23:03: PT 11.8, INR 1.03 04/23/21 23:03: WBC 8.20, Hgb 15.0, Hct 44.6, Plt Count 209 04/23/21 23:03: Sodium 141, Potassium 4.0, BUN 12, Creatinine 1.16, Glucose 222 H, Magnesium 2.0, Total Bilirubin 0.3, AST 68 H, ALT 187 H, Alkaline Phosphatase 122 H Assessment and Plan - Plan Assessment: Acute hypoxic respiratory failure secondary to COVID-19 pneumonia complicated with obesity Diabetes mellitus type 2 with hyperglycemia Obstructive sleep apnea Plan: Acute hypoxic respiratory failure secondary to COVID-19 pneumonia complicated with obesity: Continue with IV steroids, oral supplements, LFTs mildly elevated we will hold off on ivermectin, patient will not qualify for baricitinib at this time given CRP level. Pulmonology consulted for additional assistance, supplemental oxygen as needed, daily room air saturations. Appreciate further input from pulmonology. Diabetes mellitus type 2 with hyperglycemia: A [facility] Accu-Chek, sliding scale insulin therapy. A1c with morning labs. Patient already hyperglycemic, and will be on high-dose steroids. Will initiate therapy with Lantus 10 units nightly. Obstructive sleep apnea: As needed CPAP/BiPAP. DVT PPX: Lovenox Code status: Full Discharge Plan: Home Plan to discharge in: Greater than 2 days - Advance Directives Does patient have a Living Will: No Does patient have a Durable POA for Healthcare: No - Code Status/Comfort Care Code Status Assessed: Yes (Full code) Critical Care: No Time Spent Managing Pts Care (In Minutes): 55
[2021-04-24] MEDS ORDERED: LORazepam 2 MG/ML VIAL ONE (01:06)
[2021-04-24] MEDS ORDERED: IBUPROFEN 400 MG TAB ONE (01:41)
[2021-04-24] MEDS ORDERED: MELATONIN 5 MG TABLET PO PRN (02:04)
[2021-04-24] MEDS ORDERED: ACETAMINOPHEN 500 MG TAB PO PRN (02:04)
[2021-04-24] MEDS ORDERED: D50W 25 GM/50 ML SYRINGE IV PRN (02:04)
[2021-04-24] MEDS ORDERED: GLUCAGON 1 MG/VIAL IM PRN (02:04)
[2021-04-24] MEDS ORDERED: ONDANSETRON 4 MG/2 ML VIAL IV PRN (02:04)
[2021-04-24 02:43] VITALS: BMI 40.1
[2021-04-24 05:38] LABS: Absolute Lymphocytes (CBC) 0.6 K/uL (0.7-4.9); Basophils % 0.2 % (0-1.3); Hematocrit 39.5 % (39.6-49.0); Lymphocytes % 6.1 % (15.3-44.8); MPV 7.7 fL (7.6-11.3)
[2021-04-24 05:42] LABS: Urine Appearance CLEAR (Clear); Urine Bilirubin NEGATIVE (Negative); Urine Blood NEGATIVE (Negative); Urine Color YELLOW (Yellow); Urine Glucose 2+ (Negative); Urine Protein 2+ (Negative); Urine Specific Gravity >=1.030 (1.005-1.030)
[2021-04-24 05:51] LABS: Urine Microscopic Reflex ORDER UMIC
[2021-04-24 06:01] LABS: Albumin 3.1 g/dL (3.4-5.0); Bilirubin Total 0.3 mg/dL (0.2-1.0); Protein, Total 7.3 g/dL (6.4-8.2)
[2021-04-24 06:02] LABS: C-Reactive Protein 44.1 mg/L (<3.00)
[2021-04-24 06:12] LABS: Urine Bacteria <20 /HPF (NONE SEEN); Urine Mucus 1+ /HPF (NONE SEEN)
--- NOTE | 2021-04-24 06:38 | P.PN ---
Subjective Date of Service: 04/24/21 Primary Care Provider: Samantha Solorazno Chief Complaint: COVID-19 pneumonia Subjective: Other (Overall stable. Currently on BiPAP.) Physical Examination - Vital Signs Temperature: 97.5 F Blood Pressure: 104/64 Pulse: 100 Respirations: 40 Pulse Ox (%): 96 - Studies Laboratory Data (last 24 hrs) 04/23/21 23:03: PT 11.8, INR 1.03 04/23/21 23:03: WBC 8.20, Hgb 15.0, Hct 44.6, Plt Count 209 04/23/21 23:03: Sodium 141, Potassium 4.0, BUN 12, Creatinine 1.16, Glucose 222 H, Magnesium 2.0, Total Bilirubin 0.3, AST 68 H, ALT 187 H, Alkaline Phosphatase 122 H Assessment & Plan Discharge Plan: Home Plan to discharge in: Greater than 2 days Physician Review Additional Text: COVID: Positive, unvaccinated Initial CXR: COMPARISON: None TECHNIQUE: AP portable chest image was obtained 04/23/2021 11:00 pm . FINDINGS: Lung volumes are low. Interstitial and alveolar opacities are scattered throughout the lung ram worse in the right upper lobe and left base. All findings are accentuated by shallow inspiration. Trachea is midline. Heart and vasculature are normal. No measurable pleural effusion and no pneumothorax. No acute bony abnormality seen. No acute aortic findings suspected. IMPRESSION: Bilateral mild to moderate COVID-[address] chest: COMPARISON: Chest radiograph of the same day. FINDINGS: PULMONARY ARTERIES: Limited evaluation due to poor bolus timing. No central pulmonary embolus. AORTA: No acute findings. No thoracic aortic aneurysm. LUNGS: Moderate bilateral groundglass opacities, linear densities in interlobular septal thickening. PLEURAL SPACE: Unremarkable. No significant effusion. No pneumothorax. HEART: Unremarkable. No cardiomegaly. No significant pericardial effusion. No evidence of RV dysfunction. BONES/JOINTS: No acute fracture. No dislocation. SOFT TISSUES: Unremarkable. LYMPH NODES: Bihilar lymphadenopathy. LIVER: Partially seen hepatomegaly and hepatic steatosis. IMPRESSION: 1. Limited evaluation due to poor bolus timing. No central pulmonary embolus. 2. Commonly reported imaging features of COVID-19 pneumonia are present. Other processes such as influenza pneumonia and organizing pneumonia, as can be seen with drug toxicity and connective tissue disease, can cause similar imaging pattern. PneTyp 3. Bihilar lymphadenopathy. 4. Partially seen hepatomegaly and hepatic steatosis. Abdominal ultrasound: COMPARISON: Abdomen Exam Limited dated 01/17/2021 FINDINGS: Gallbladder size is normal. No gallstones, wall thickening or pericholecystic fluid. Common bile duct is normal with no common duct stone identified. The liver is 18 cm in maximum dimension. No focal liver lesions seen and no capsule nodularity. Prominent increased hepatic parenchymal echogenicity noted. Doppler evaluation shows no portal vein abnormality. Spleen is 11 cm with no focal abnormality. IMPRESSION: Diffuse fatty infiltration of an 18 centimeter sized liver. No focal lesion identifiable. No gallbladder or biliary tree abnormality. Physical exam: General: Alert, In no apparent distress, Oriented x3 HEENT: Neck supple Respiratory: Diminished bilateral. Currently on BiPAP at 40% Cardiovascular: Regular rate/rhythm, Normal S1 S2 Capillary refill: <2 Seconds Gastrointestinal: Normal bowel sounds, No tenderness Musculoskeletal: No tenderness Integumentary: No rashes Neurological: Normal gait, Normal speech, Normal strength at 5/5 x4 extr, Normal tone, Normal affect Lymphatics: No axilla or inguinal lymphadenopathy Impression: Acute hypoxic respiratory failure secondary to bilateral COVID-19 pneumonia, unvaccinated Diabetes mellitus type 2 with hyperglycemia Obstructive sleep apnea Elevated liver function with fatty liver Obesity, BMI 40.2 Plan: Acute hypoxic respiratory failure secondary to bilateral COVID-19 pneumonia, unvaccinated: Patient remained stable on BiPAP at 40%. Respiratory to continue to wean off. Maintain sats above 93%. Continue IV steroids and supplementation. Patient with elevated liver function. Hold off on baricitinib or remdesivir. Patient with underlying fatty liver. Await further recommendations from pulmonology. Recommend proning, incentive spirometer. Continue to reassess. Monitor CRP and ferritin daily. Recheck chest x-ray tomorrow. I will turn the service over to the hospitalist team tomorrow. I will go plan of care with him. Diabetes mellitus type 2 with hyperglycemia: Continue Lantus. Will adjust Lantus for better control. Continue Accu-Cheks and sliding scale. Hemoglobin A1c 6.5. Obstructive sleep apnea: Patient remains on BiPAP. Elevated liver function with fatty liver: We will monitor liver function test. This can be further addressed as an outpatient. Obesity, BMI 40.2: We will address lifestyle modification education DVT PPX: Lovenox Code status: Full Discharge Plan: Home at discharge Time Spent Managing Pts Care (In Minutes): 55
[2021-04-24] MEDS: INSULIN -REGULAR HUMAN 50 UNIT/0.5 ML ML SQ SCH ×4 (07:30→20:50)
[2021-04-24] MEDS ORDERED: PNEUMOCOCCAL VACCINE 0.5 ML IMVAC ONE (08:00)
[2021-04-24] MEDS ORDERED: ASCORBIC ACID 500 MG TABLET ONE ×3 (08:21→21:04)
[2021-04-24] MEDS ORDERED: ASPIRIN EC 81 MG TAB PO ONE (08:22)
[2021-04-24] MEDS ORDERED: VITAMIN D 1000 UNIT TAB ONE (08:22)
[2021-04-24] MEDS ORDERED: METHYLPREDNISOLONE 40 MG INJ ONE (08:22)
[2021-04-24] MEDS ORDERED: ZINC SULFATE 220 MG CAP ONE (08:22)
[2021-04-24] MEDS ORDERED: THIAMINE HCL 100 MG TABLET ONE (08:23)
[2021-04-24] MEDS: ZINC SULFATE 220 MG CAP PO SCH (08:34)
[2021-04-24] MEDS: ASCORBIC ACID 500 MG TABLET PO SCH ×4 (08:34→20:50)
[2021-04-24] MEDS: VITAMIN D 1000 UNIT TAB PO SCH (08:34)
[2021-04-24] MEDS: METHYLPREDNISOLONE 40 MG INJ IV SCH ×2 (08:34→20:50)
[2021-04-24] MEDS: THIAMINE HCL 100 MG TABLET PO SCH (08:34)
[2021-04-24] MEDS: ASPIRIN EC 81 MG TAB PO SCH (08:34)
--- NOTE | 2021-04-24 08:53 | RAD REPORT ---
EXAM DESCRIPTION: RAD - Chest Single View - 04/23/2021 11:00 pm CLINICAL HISTORY: SOB, COVID positive COMPARISON: None TECHNIQUE: AP portable chest image was obtained 04/23/2021 11:00 pm . FINDINGS: Lung volumes are low. Interstitial and alveolar opacities are scattered throughout the mona g ram worse in the right upper lobe and left base. All findings are accentuated by shallow inspira tion. Trachea is midline. Heart and vasculature are normal. No measurable pleural effusion and no pne umothorax. No acute bony abnormality seen. No acute aortic findings suspected. IMPRESSION: Bilateral mild to moderate COVID-19 pneumonia pattern.
--- NOTE | 2021-04-24 09:01 | RAD REPORT ---
EXAM DESCRIPTION: US - Abdomen Exam Limited - 04/24/2021 3:54 am CLINICAL HISTORY: elevated AST/ALT, eval liver/gallbladder COMPARISON: Abdomen Exam Limited dated 01/17/2021 FINDINGS: Gallbladder size is normal. No gallstones, wall thickening or pericholecystic fluid. Commo n bile duct is normal with no common duct stone identified. The liver is 18 cm in maximum dimension. No focal liver lesions seen and no capsule nodularity. Promi nent increased hepatic parenchymal echogenicity noted. Doppler evaluation shows no portal vein abnorm ality. Spleen is 11 cm with no focal abnormality. IMPRESSION: Diffuse fatty infiltration of an 18 centimeter sized liver. No focal lesion identifiable . No gallbladder or biliary tree abnormality.
--- NOTE | 2021-04-24 10:24 | P.CNS ---
Date of Consult: 04/24/21 Reason for Consult: COVID penumonia Primary Care Provider: Samantha Solorzano Chief Complaint: COVID-19 pneumonia History of Present Illness: age 36 metabolic synd and ELIDA AW COVID pneumonia Allergies No Known Allergies Allergy (Uncoded 12/14/17 09:58) Unknown Home Medications: Azithromycin Tab [Zithromax*] 250 mg PO ZPAK 04/24/21 Benzonatate [Tessalon Perle] 200 mg PO TID PRN 04/24/21 predniSONE [Prednisone] 40 mg PO DAILY 04/24/21 - Past Medical/Surgical History -: Diabetes mellitus type 2 -: Obstructive sleep -: Obesity -: None Psychosocial/ Personal History: Works in heavy equipment transport lives at home with family - Family History Mother Medical History: Stroke - Social History Alcohol use: No CD- Drugs: No Caffeine use: Yes Place of Residence: Home Review of Systems General: Weakness Respiratory: Shortness of Breath Physical Examination Temp Pulse Resp BP Pulse Ox 97.5 F 100 H 40 H 104/64 96 04/24/21 08:00 04/24/21 08:00 04/24/21 08:00 04/24/21 08:00 04/24/21 08:00 General: Alert, Oriented x3, Mild distress Laboratory Data (last 24 hrs) 04/23/21 23:03: PT 11.8, INR 1.03 04/23/21 23:03: WBC 8.20, Hgb 15.0, Hct 44.6, Plt Count 209 04/23/21 23:03: Sodium 141, Potassium 4.0, BUN 12, Creatinine 1.16, Glucose 222 H, Magnesium 2.0, Total Bilirubin 0.3, AST 68 H, ALT 187 H, Alkaline Phosphatase 122 H - Problems (1) Pneumonia due to COVID-19 virus Current Visit: Yes Status: Acute Plan: age 36 AW COVID penumoniaCT mild COVID/ labs reviewed/No change intherapy
--- NOTE | 2021-04-24 10:55 | RAD REPORT ---
EXAM DESCRIPTION: CT - Chest For Pe Angio - 04/24/2021 6:53 am CLINICAL HISTORY: The patient is 36 years old and is Male; COUGH TECHNIQUE: Axial computed tomographic angiography images of the chest with intravenous contrast. T his CT exam was performed using one or more of the following dose reduction techniques: automated e xposure control, adjustment of the mA and/or kV according to patient size, and/or use of iterative re construction technique. MIP reconstructed images were created and reviewed. Oblique reformatted images were created and reviewed. DLP: 620 mGy*cm COMPARISON: Chest radiograph of the same day. FINDINGS: PULMONARY ARTERIES: Limited evaluation due to poor bolus timing. No central pulmonary e mbolus. AORTA: No acute findings. No thoracic aortic aneurysm. LUNGS: Moderate bilateral groundglass opacities, linear densities in interlobular septal thickenin g. PLEURAL SPACE: Unremarkable. No significant effusion. No pneumothorax. HEART: Unremarkable. No cardiomegaly. No significant pericardial effusion. No evidence of RV dysfunction. BONES/JOINTS: No acute fracture. No dislocation. SOFT TISSUES: Unremarkable. LYMPH NODES: Bihilar lymphadenopathy. LIVER: Partially seen hepatomegaly and hepatic steatosis. IMPRESSION: 1. Limited evaluation due to poor bolus timing. No central pulmonary embolus. 2. Commonly reported imaging features of COVID-19 pneumonia are present. Other processes such as in fluenza pneumonia and organizing pneumonia, as can be seen with drug toxicity and connective tissue d isease, can cause similar imaging pattern. PneTyp 3. Bihilar lymphadenopathy. 4. Partially seen hepatomegaly and hepatic steatosis. Electronically signed by: Lexx Mix DO 04/24/2021 12:55 AM CDT Due to temporary technical issues with the PACS/Fluency reporting system, reports are being signed by the in house radiologist without review as a courtesy to ensure prompt reporting. The interpreting r adiologist is fully responsible for the content of the report.
--- NOTE | 2021-04-24 11:09 | EKG ---
Test Date: 2021-04-23 Test Time: 23:12:23 Imagery Analyst: ANAT MEASUREMENT RESULTS: Intervals: Rate: 132 NC: 150 QRSD: 72 QT: 274 QTc: 405 Cavalier: P: 51 NC: 150 QRS: 136 T: 27 INTERPRETIVE STATEMENTS: Sinus tachycardia Right axis deviation Cannot rule out Anterior infarct, age undetermined Abnormal ECG No previous ECG available for comparison Electronically Signed On 04-24-21 11:07:32 CDT by Ermias Olivas
[2021-04-24 13:11] LABS: Blood Morphology Comment NOT SEEN (NOT SEEN); Platelet Estimate ADEQ; White Blood Cell Scan OK (OK)
[2021-04-24] MEDS: INSULIN GLARGINE 100 UNITS/ML SQ SCH (20:49)
[2021-04-24] MEDS: FAMOTIDINE 20 MG TAB PO SCH (20:50)
[2021-04-24] MEDS: BENZONATATE 100 MG CAP PO PRN (20:51)
[2021-04-24] MEDS ORDERED: METHYLPREDNISOLONE 125 MG INJ ONE (21:04)
[2021-04-24] MEDS ORDERED: INSULIN GLARGINE 100 UNITS/ML SQ ONE (21:05)
[2021-04-24] MEDS ORDERED: INSULIN -REGULAR HUMAN 50 UNIT/0.5 ML ML ONE (21:05)
[2021-04-24] MEDS ORDERED: BENZONATATE 100 MG CAP PO ONE (21:07)
[2021-04-24] MEDS ORDERED: FAMOTIDINE 20 MG TAB ONE (21:07)
[2021-04-25 04:41] LABS: Absolute Lymphocytes (CBC) 0.8 K/uL (0.7-4.9); Basophils % 0.1 % (0-1.3); Hematocrit 38.7 % (39.6-49.0); Lymphocytes % 17.7 % (15.3-44.8); MPV 7.5 fL (7.6-11.3); RBC Red Blood Cell Count 4.52 M/uL (4.33-5.43)
[2021-04-25 05:20] LABS: ALT/SGPT 127 U/L (12-78); AST/SGOT 31 U/L (15-37); Albumin 2.9 g/dL (3.4-5.0); Alkaline Phosphatase 83 U/L (45-117); BUN Blood Urea Nitrogen 17 mg/dL (7-18); Bicarbonate 27 mmol/L (21-32); Bilirubin Total 0.3 mg/dL (0.2-1.0); Glucose Level 208 mg/dL (74-106); Magnesium 2.3 mg/dL (1.8-2.4); Sodium Level 145 mmol/L (136-145)
--- NOTE | 2021-04-25 07:25 | RAD REPORT ---
EXAM DESCRIPTION: Gamaliel Single View04/25/2021 6:55 am CLINICAL HISTORY: Shortness of breath COMPARISON: April 23 FINDINGS: Mild to moderate worsening in moderate bilateral pulmonary opacities. The heart is normal size IMPRESSION: Mild to moderate worsening in the bilateral pneumonia
[2021-04-25 07:28] LABS: Ferritin 1244.6 ng/mL (26-388)
[2021-04-25] MEDS: FAMOTIDINE 20 MG TAB PO SCH ×2 (09:09→19:53)
[2021-04-25] MEDS: ASPIRIN EC 81 MG TAB PO SCH (09:09)
[2021-04-25] MEDS: ASCORBIC ACID 500 MG TABLET PO SCH ×4 (09:09→19:53)
[2021-04-25] MEDS: THIAMINE HCL 100 MG TABLET PO SCH (09:09)
[2021-04-25] MEDS: VITAMIN D 1000 UNIT TAB PO SCH (09:09)
[2021-04-25] MEDS: ENOXAPARIN 40 MG/0.4 ML SQ SCH (09:10)
[2021-04-25] MEDS: ZINC SULFATE 220 MG CAP PO SCH (09:10)
[2021-04-25] MEDS: METHYLPREDNISOLONE 40 MG INJ IV SCH ×2 (09:10→19:53)
[2021-04-25] MEDS: INSULIN -REGULAR HUMAN 50 UNIT/0.5 ML ML SQ SCH ×4 (09:21→19:53)
[2021-04-25] MEDS: BENZONATATE 100 MG CAP PO PRN ×2 (10:31→19:53)
[2021-04-25] MEDS ORDERED: METHYLPREDNISOLONE 125 MG INJ IV ONE (16:08)
--- NOTE | 2021-04-25 16:18 | P.PN ---
Subjective Date of Service: 04/25/21 Patient wanting additional medications periods feels like he is not getting better. Chest x-ray shows progressive infiltrates bilaterally. Significant worsening of his pneumonia. Inflammatory markers are stable. Review of Systems 10-point ROS is otherwise unremarkable Physical Examination - Vital Signs Temperature: 99.1 F Blood Pressure: 114/61 Pulse: 90 Respirations: 24 Pulse Ox (%): 92 - Physical Exam General: Alert, In no apparent distress HEENT: Atraumatic, PERRLA, EOMI Neck: Supple, JVD not distended Respiratory: Clear to auscultation bilaterally, Normal air movement Cardiovascular: Regular rate/rhythm, Normal S1 S2 Gastrointestinal: Normal bowel sounds, No tenderness Musculoskeletal: No tenderness Integumentary: No rashes Neurological: Normal speech, Normal tone, Normal affect Lymphatics: No axilla or inguinal lymphadenopathy - Studies Medications List Reviewed: Yes Assessment & Plan - Problems (Diagnosis) (1) Hypoxemia Current Visit: Yes Status: Acute (2) Pneumonia due to COVID-19 virus Current Visit: Yes Status: Acute - Plan 1. Continue with IV steroids 2. Monitor inflammatory markers 3. Repeat chest x-ray 4. O2 per protocol 5. Pulmonary consultation was obtained; standard treatment; 6. Continue with albuterol inhaler therapy; also additional supportive care 7. GI and DVT prophylaxis Discharge Plan: Home Plan to discharge in: Greater than 2 days - Advance Directives Does patient have a Living Will: No Does patient have a Durable POA for Healthcare: No Critical Care: No Time Spent Managing PTS Care (In Minutes): 35
--- NOTE | 2021-04-25 16:23 | P.PN ---
Subjective Date of Service: 04/25/21 Physical Examination - Vital Signs Temperature: 99.1 F Blood Pressure: 114/61 Pulse: 90 Respirations: 24 Pulse Ox (%): 92 Assessment & Plan - Advance Directives Does patient have a Living Will: No Does patient have a Durable POA for Healthcare: No
[2021-04-25] MEDS: ALBUTEROL INHALER 60 PUFF/8 GM IH SCH ×2 (17:00→20:00)
[2021-04-25] MEDS: AZITHROMYCIN IV 250 MG in NA CHLORIDE 0.9% 250 ML IVPB SCH (17:00)
[2021-04-25] MEDS ORDERED: AZITHROMYCIN 500 MG INJ IVPB ONE (18:12)
[2021-04-25] MEDS: INSULIN GLARGINE 100 UNITS/ML SQ SCH (19:54)
[2021-04-26] MEDS: ALBUTEROL INHALER 60 PUFF/8 GM IH SCH ×4 (02:00→20:00)
[2021-04-26 04:22] LABS: Basophils % 0.1 % (0-1.3); Hematocrit 38.9 % (39.6-49.0); Lymphocytes % 16.2 % (15.3-44.8); MPV 7.3 fL (7.6-11.3); RBC Red Blood Cell Count 4.52 M/uL (4.33-5.43)
[2021-04-26 04:45] LABS: ALT/SGPT 250 U/L (12-78); AST/SGOT 126 U/L (15-37); Albumin 2.8 g/dL (3.4-5.0); Alkaline Phosphatase 84 U/L (45-117); BUN Blood Urea Nitrogen 21 mg/dL (7-18); Bicarbonate 28 mmol/L (21-32); Bilirubin Total 0.3 mg/dL (0.2-1.0); Glucose Level 242 mg/dL (74-106); Magnesium 2.5 mg/dL (1.8-2.4); Protein, Total 6.7 g/dL (6.4-8.2); Sodium Level 143 mmol/L (136-145)
[2021-04-26] MEDS: VITAMIN D 1000 UNIT TAB PO SCH (08:49)
[2021-04-26] MEDS: METHYLPREDNISOLONE 40 MG INJ IV SCH ×2 (08:49→22:51)
[2021-04-26] MEDS: THIAMINE HCL 100 MG TABLET PO SCH (08:49)
[2021-04-26] MEDS: ASPIRIN EC 81 MG TAB PO SCH (08:50)
[2021-04-26] MEDS: FAMOTIDINE 20 MG TAB PO SCH ×2 (08:50→22:50)
[2021-04-26] MEDS: ENOXAPARIN 40 MG/0.4 ML SQ SCH (08:50)
[2021-04-26] MEDS: ASCORBIC ACID 500 MG TABLET PO SCH ×4 (08:50→22:51)
[2021-04-26] MEDS: ZINC SULFATE 220 MG CAP PO SCH (08:50)
[2021-04-26] MEDS: INSULIN -REGULAR HUMAN 50 UNIT/0.5 ML ML SQ SCH ×4 (08:51→22:50)
[2021-04-26] MEDS: BENZONATATE 100 MG CAP PO PRN (09:12)
[2021-04-26] MEDS: AZITHROMYCIN IV 250 MG in NA CHLORIDE 0.9% 250 ML IVPB SCH (09:32)
[2021-04-26] MEDS: INSULIN GLARGINE 100 UNITS/ML SQ SCH (22:49)
[2021-04-27] MEDS: ALBUTEROL INHALER 60 PUFF/8 GM IH SCH ×3 (02:00→13:58)
[2021-04-27 04:43] VITALS: O2SAT 93
[2021-04-27 05:54] LABS: Absolute Lymphocytes (CBC) 0.8 K/uL (0.7-4.9); Basophils % 0.2 % (0-1.3); MPV 7.2 fL (7.6-11.3); RBC Red Blood Cell Count 4.63 M/uL (4.33-5.43)
[2021-04-27 06:30] LABS: ALT/SGPT 272 U/L (12-78); AST/SGOT 53 U/L (15-37); Albumin 2.7 g/dL (3.4-5.0); Alkaline Phosphatase 78 U/L (45-117); BUN Blood Urea Nitrogen 22 mg/dL (7-18); Bicarbonate 30 mmol/L (21-32); Bilirubin Total 0.5 mg/dL (0.2-1.0); C-Reactive Protein 3.82 mg/L (<3.00); Ferritin 982.3 ng/mL (26-388); Glucose Level 219 mg/dL (74-106); Magnesium 2.5 mg/dL (1.8-2.4); Potassium 4.6 mmol/L (3.5-5.1); Protein, Total 6.5 g/dL (6.4-8.2); Sodium Level 145 mmol/L (136-145)
[2021-04-27] MEDS: ENOXAPARIN 40 MG/0.4 ML SQ SCH (08:54)
[2021-04-27] MEDS: THIAMINE HCL 100 MG TABLET PO SCH (08:55)
[2021-04-27] MEDS: ASCORBIC ACID 500 MG TABLET PO SCH ×3 (08:55→17:00)
[2021-04-27] MEDS: METHYLPREDNISOLONE 40 MG INJ IV SCH (08:55)
[2021-04-27] MEDS: FAMOTIDINE 20 MG TAB PO SCH (08:55)
[2021-04-27] MEDS: ASPIRIN EC 81 MG TAB PO SCH (08:55)
[2021-04-27] MEDS: VITAMIN D 1000 UNIT TAB PO SCH (08:55)
[2021-04-27] MEDS: ZINC SULFATE 220 MG CAP PO SCH (08:56)
[2021-04-27] MEDS: INSULIN -REGULAR HUMAN 50 UNIT/0.5 ML ML SQ SCH ×3 (08:56→16:30)
[2021-04-27] MEDS: AZITHROMYCIN IV 250 MG in NA CHLORIDE 0.9% 250 ML IVPB SCH (08:57)
--- NOTE | 2021-04-27 10:31 | P.PN ---
Date of Service: 04/26/21 Subjective Patient continues to improve. Anticipate discharge in a.m. Review of Systems 10-point ROS is otherwise unremarkable Physical Examination - Vital Signs Reviewed - Physical Exam General: Alert, In no apparent distress Respiratory: Clear to auscultation bilaterally, Normal air movement Cardiovascular: Regular rate/rhythm, Normal S1 S2 Gastrointestinal: Normal bowel sounds, No tenderness Neurological: Normal speech, Normal tone, Normal affect Assessment & Plan - Problems (Diagnosis) (1) Hypoxemia Current Visit: Yes Status: Acute (2) Pneumonia due to COVID-19 virus Current Visit: Yes Status: Acute - Plan Continue with plan of care as mentioned below: 1. Continue with IV steroids 2. Monitor inflammatory markers 3. Repeat chest x-ray if needed 4. O2 per protocol 5. Pulmonary consultation was obtained; standard treatment; 6. Continue with albuterol inhaler therapy; also additional supportive care 7. GI and DVT prophylaxis
[2021-04-27 14:05] VITALS: BP 120/78; TEMP 98.2
--- NOTE | 2021-05-04 02:38 | P.DS ---
Discharge Date: 04/27/21 Primary Care Provider: Samantha Solorzano Disposition: ROUTINE DISCHARGE Discharge Condition: GOOD Reason for Admission: COVID-19 pneumonia - Problems (1) Hypoxemia Status: Acute (2) Pneumonia due to COVID-19 virus Status: Acute Brief History of Present Illness: 36-year-old male with history obstructive sleep apnea, diabetes mellitus type 2, obesity presents emergency department for shortness of breath. Patient reports testing positive for Covid on 04/20/2021 with worsening shortness of breath since then. Patient was saturating in the 80s on room air upon arrival to the emergency department. Patient was evaluated in the ER labs are significant for white blood cell count 8.2 sodium 141 chloride 110 GFR 70 glucose 222 ferritin 1489 AST 68 ALT 187 alk phos 122 C-reactive protein 44.2. Chest x-ray with bilateral Covid pneumonia ED provider wishes to admit for further evaluation and management. Hospital Course: Patient is doing well with new new complaints. Patient is stable for discharge with home oxygen and outpatient follow with Pulmonary. Vital Signs/Physical Exam: Temp Pulse Resp BP Pulse Ox 98.2 F 96 H 16 120/78 16 L 04/27/21 12:00 04/27/21 12:00 04/27/21 12:00 04/27/21 12:00 04/27/21 12:00 General: Alert, In no apparent distress, Oriented x3 Laboratory Data at Discharge: WBC 6.90 K/uL (4.3-10.9) D 04/27/21 04:45 Hgb 13.4 g/dL (13.6-17.9) L 04/27/21 04:45 Hct 40.0 % (39.6-49.0) 04/27/21 04:45 Plt Count 340 K/uL (152-406) 04/27/21 04:45 PT 11.8 SECONDS (9.5-12.5) 04/23/21 23:03 INR 1.03 04/23/21 23:03 Sodium 145 mmol/L (136-145) 04/27/21 04:45 Potassium 4.6 mmol/L (3.5-5.1) 04/27/21 04:45 BUN 22 mg/dL (7-18) H 04/27/21 04:45 Creatinine 0.90 mg/dL (0.55-1.3) 04/27/21 04:45 Glucose 219 mg/dL (74-106) H 04/27/21 04:45 Magnesium 2.5 mg/dL (1.8-2.4) H 04/27/21 04:45 Total Bilirubin 0.5 mg/dL (0.2-1.0) 04/27/21 04:45 AST 53 U/L (15-37) H 04/27/21 04:45 ALT 272 U/L (12-78) H 04/27/21 04:45 Alkaline Phosphatase 78 U/L (45-117) 04/27/21 04:45 Home Medications: Azithromycin Tab [Zithromax*] 250 mg PO ZPAK 04/24/21 predniSONE [Prednisone] 40 mg PO DAILY 04/24/21 Albuterol Inhaler [Ventolin Inhaler*] 2 puff IH [id number] #1 hfa.aer.ad 04/27/21 Apixaban [Eliquis] 5 mg PO BID #30 tablet 04/27/21 Ascorbic Acid [Vitamin C*] 500 mg PO QID #60 tablet 04/27/21 Benzonatate [Tessalon Perle*] 100 mg PO TID PRN #30 cap 04/27/21 Cholecalciferol (Vitamin D3) [Vitamin D 1000 Iu Tab*] 4,000 unit PO DAILY #30 tab 04/27/21 Famotidine [Pepcid*] 20 mg PO BID #60 tab 04/27/21 Melatonin 5 mg PO BEDTIME PRN PRN #10 tablet 04/27/21 Thiamine HCl [Vitamin B-1*] 100 mg PO DAILY #30 tablet 04/27/21 Zinc Sulfate [Zinc Sulfate*] 220 mg PO DAILY #30 cap 04/27/21 predniSONE [Prednisone*] 20 mg PO BID #20 tab 04/27/21 New Medications: Apixaban [Eliquis] 5 mg PO BID #30 tablet Melatonin 5 mg PO BEDTIME PRN PRN #10 tablet PRN Reason: Insomnia Famotidine [Pepcid*] 20 mg PO BID #60 tab predniSONE [Prednisone*] 20 mg PO BID #20 tab Benzonatate [Tessalon Perle*] 100 mg PO TID PRN #30 cap PRN Reason: Cough Albuterol Inhaler [Ventolin Inhaler*] 2 puff IH [id number] #1 hfa.aer.ad Thiamine HCl [Vitamin B-1*] 100 mg PO DAILY #30 tablet Ascorbic Acid [Vitamin C*] 500 mg PO QID #60 tablet Cholecalciferol (Vitamin D3) [Vitamin D 1000 Iu Tab*] 4,000 unit PO DAILY #30 tab Zinc Sulfate [Zinc Sulfate*] 220 mg PO DAILY #30 cap Physician Discharge Instructions: OK TO DC IV AND DC HOME FOLLOW-UP WITH PRIMARY CARE PROVIDER IN 1-2 WEEKS FOLLOW-UP WITH Pulmonary IN 1-2 WEEKS RETURN TO THE ER IF symptoms worsen CALL or TEXT DR. DOMINGUEZ AT [phone] IF ANY QUESTIONS REGARDING HOSPITAL STAY. PLEASE CALL THE FLOOR AT [phone] IF ANY MEDICATION OR NURSING QUESTIONS. Diet: AHA Activity: Fall precautions Followup: Marcus Wylie MD [ACTIVE - CAN ADMIT] - (call to schedule follw up appointment) NONE,NONE [Primary Care Provider] - Time spent managing pt's care (in minutes): 35
== END 2021-04-27 17:39 | disposition home or self-care (01) | DRG 177 ==
LOC: ER 22:08 → ERHOLD 04-24 00:37 → 4TH 04-24 21:40
PROVIDERS: ADMIT Family Medicine; ATTEND Family Medicine
PROC: 5A09357 Assistance with Respiratory Ventilation, Less than 24 Consecutive Hours, Continuous Positive Airway Pressure (ICD-10-PCS; principal; 2021-04-24)
DX: U07.1 COVID-19 (principal); J12.82 Pneumonia due to coronavirus disease 2019; J96.01 Acute respiratory failure with hypoxia; Z68.41 Body mass index [BMI] 40.0-44.9, adult; G47.33 Obstructive sleep apnea (adult) (pediatric); E66.9 Obesity, unspecified; E11.65 Type 2 diabetes mellitus with hyperglycemia
CPT/HCPCS: 36415; 71045; 71275; 76705; 80048; 80053; 80076; 81003; 81015; 82728; 82805; 82947; 83036; 83605; 83735; 83880; 84145; 84484; 85025; 85379; 85610; 86140; 93005; 94010; 94660; 94760; 96361; 96372; 96374; 96375; 99285; J0456; J1100; J1650; J1815; J2920; J2930; J7030; J7050; Q9967